=== PATIENT | female | born 1985 | race Asian ===

== ENCOUNTER 2018-06-23 23:40 | Emergency (ER) | payer SELFPAY, MEDICAID | END 2018-06-24 02:30 | disposition left against medical advice (07) | LOC: FTE 23:40 | DX: Z53.21 Procedure and treatment not carried out due to patient leaving prior to being seen by health care provider (principal) ==

== ENCOUNTER 2018-06-27 15:19 | Emergency (ER) | payer OTHER ==
[2018-06-27] MEDS: MECLIZINE 12.5 MG TAB PO (16:10)
== END 2018-06-27 18:50 | disposition home or self-care (01) ==
LOC: E/R 15:19
DX: R42 Dizziness and giddiness (principal)
CPT/HCPCS: 81025; 82962; 93005; 99283-25